=== PATIENT | female | born 1990 | race African-American/Black ===

== ENCOUNTER 2017-03-21 14:32 | Emergency (ER) | payer OTHER ==
[~2017-03-21] VITALS: Ht 152.4 cm; Wt 54.4 kg
[~2017-03-21 14:32] MED LIST: ACCUNEB SO1.25 MG/1; ACCUNEB SO1.25 MG/1 INH; APAP500 PO; ATIVAN0.5 MG PO; ATIVAN1 M1 PO; ATIVAN1 MG PO; BACTRIM DS TAB1 EACH PO; CIPROFLOXACIN500 M1 PO; CITRATE OF MAG296 ML PO; COLACE100 MG PO; DARVOCET-N 1001 EACH PO; DIFLUCAN150 MG PO; FLAGYL500 MG PO; FLEXERIL PO; HYDROCODONE-AP1 EAC6 PO; IBUPROFEN 400400 M2 PO; IBUPROFEN 600600 M1 PO; IBUPROFEN 800800 MG PO; LORTAB 5-325 M1 EACH PO; MIRALAX255 GM PO; MUCUS RELIEF600 MG PO; NEXIUM40 MG PO; NORCO 5-325 TA1 EACH PO; ONDANSETRON HCL4 M2 PO; PENICILLIN VK500 M1 PO; PERCOCET 10-321 EACH PO; PERCOCET 7.5-51 EACH PO; PHENERGAN 25 MG25 M1 PO; PROAIR HFA8.5 GM; PROMETHAZI6.25 MG/2 PO; PROMETHAZINE HC25 MG RECTAL; REGLAN 5 MG TAB5 MG PO; SPACERADULT; TRAMADOL 50 MG50 MG PO; ULTRAM 50MG TAB50 MG PO; ZOFRAN 4 MG ORAL4 M1 DIS; ZOFRAN ODT4 MG PO; ZOFRAN4 MG PO
[2017-03-21 15:27] LABS: ABSOLUTE NEUTROPHILS 5.1 thou/uL (1.4-8.2); BASOPHILS 0.7 % (0.0-2.0); EOSINOPHILS 0.5 % (0.0-3.0); HEMATOCRIT 33.1 % (37.0-47.0); HEMOGLOBIN 10.9 gm/dL (12.0-15.0); LYMPHOCYTES 28.5 % (24.0-44.0); MCH 28.2 pg (26.0-34.0); MCHC 32.8 g/dL (28.0-37.0); MCV 86.1 fL (80.0-100.0); PLATELET COUNT 304 thou/uL (150-400); POLYS 66.3 % (36.0-66.0); RBC 3.85 mil/uL (4.20-5.00); RDW 18.4 % (10.5-14.5); WBC 7.7 thou/uL (4.0-11.0)
[2017-03-21 15:28] LABS: URINE BILIRUBIN NEGATIVE (Negative); URINE BLOOD NEGATIVE (Negative); URINE COLOR YELLOW; URINE GLUCOSE-RANDOM* NEGATIVE (Negative); URINE KETONES NEGATIVE (Negative); URINE LEUKOCYTES-REFLEX NEGATIVE (Negative); URINE PROTEIN (DIPSTICK) TRACE (Negative)
[2017-03-21 15:28] LABS: MANUAL DIFF NO
[2017-03-21 15:31] LABS: CALCIUM 9.1 mg/dL (8.5-10.1); CREATININE 0.8 mg/dL (0.6-1.0); POTASSIUM 3.7 mmol/L (3.5-5.1)
[2017-03-21 15:34] LABS: SSA (PROTEIN CONFIRMATORY) NEGATIVE (Negative)
[2017-03-21 15:36] LABS: TOTAL BILIRUBIN 0.4 mg/dL (<0.1-1.0); TOTAL PROTEIN 7.4 g/dL (6.4-8.2)
[2017-03-21] MEDS ORDERED: FLAGYL500 MG PO (17:03)
[2017-03-21] MEDS ORDERED: BENTYL 20 MG TA20 M1 PO (17:06)
[2017-03-21] MEDS ORDERED: VANDAZOLE GEL 070 GM VG (17:11)
[2017-03-21 17:29] VITALS: BP 112/69
[2017-03-25 03:08] LABS: CHLAMYDIA TRACHOMATIS-PCR Negative (Negative); NEISSERIA GONORRHEA-PCR Negative (Negative)
== END 2017-03-21 17:30 | disposition home or self-care (01) ==
LOC: ER 14:32
PROVIDERS: Physician Assistant
DX: N76.0 Acute vaginitis (principal); B96.89 Other specified bacterial agents as the cause of diseases classified elsewhere; R11.2 Nausea with vomiting, unspecified; R10.30 Lower abdominal pain, unspecified; J45.909 Unspecified asthma, uncomplicated; F17.210 Nicotine dependence, cigarettes, uncomplicated; F10.99 Alcohol use, unspecified with unspecified alcohol-induced disorder; Z90.721 Acquired absence of ovaries, unilateral; Z88.6 Allergy status to analgesic agent

== ENCOUNTER 2017-11-30 02:43 | Emergency (ER) | payer OTHER ==
[~2017-11-30] VITALS: Ht 152.4 cm; Wt 54.4 kg
[~2017-11-30 02:43] MED LIST changes: +BENTYL 20 MG TA20 M1 PO; +VANDAZOLE GEL 070 GM VG
[2017-11-30 03:30] LABS: URINE BILIRUBIN ND (Negative); URINE BLOOD ND (Negative); URINE CLARITY TURBID; URINE COLOR RED; URINE GLUCOSE-RANDOM* ND (Negative); URINE KETONES ND (Negative); URINE LEUKOCYTES-REFLEX ND (Negative); URINE NITRITE-REFLEX ND (Negative); URINE PROTEIN (DIPSTICK) ND (Negative); URINE SPECIFIC GRAVITY ND (1.005-1.035); URINE UROBILINOGEN ND E.U./dl (0.2-1.0)
[2017-11-30 03:36] LABS: URINE RBC >20 Many /HPF (0-2); URINE WBC-REFLEX 6-15 Few /HPF (0-5)
[2017-11-30 03:37] LABS: BACTERIA-REFLEX >30 Many /HPF (None Seen); CASTS None Seen /LPF (None Seen); CRYSTALS None Seen /LPF (None Seen)
[2017-11-30 03:38] LABS: SQUAMOUS >10 Many /LPF (0-3)
[2017-11-30] MEDS ORDERED: KEFLEX500 M1 PO (04:06)
== END 2017-11-30 04:37 | disposition home or self-care (01) ==
LOC: ER 02:43
PROVIDERS: Emergency Medicine
DX: N39.0 Urinary tract infection, site not specified (principal); J45.909 Unspecified asthma, uncomplicated; F17.210 Nicotine dependence, cigarettes, uncomplicated; Z88.8 Allergy status to other drugs, medicaments and biological substances

== ENCOUNTER 2017-12-04 09:29 | Emergency (ER) | payer OTHER ==
[~2017-12-04] VITALS: Ht 154.9 cm; Wt 54.4 kg
[~2017-12-04 09:29] MED LIST changes: +KEFLEX500 M1 PO
[2017-12-04 10:15] LABS: CALCIUM 9.5 mg/dL (8.5-10.1); CREATININE 0.9 mg/dL (0.6-1.0); POTASSIUM 4.1 mmol/L (3.5-5.1)
[2017-12-04 10:18] LABS: HEMATOCRIT 34.2 % (37.0-47.0); HEMOGLOBIN 11.5 gm/dL (12.0-15.0); MCH 29.7 pg (26.0-34.0); MCHC 33.6 g/dL (28.0-37.0); MCV 88.5 fL (80.0-100.0); RBC 3.87 mil/uL (4.20-5.00); RDW 14.5 % (10.5-14.5); WBC 8.9 thou/uL (4.0-11.0)
[2017-12-04 10:55] LABS: AMP/METHAMP Negative (Negative); BARBITURATES Negative (Negative); BENZODIAZEPINES Negative (Negative); COCAINE POSITIVE (Negative); METHADONE Negative (Negative); OPIATES Negative (Negative); PCP Negative (Negative)
[2017-12-04] MEDS ORDERED: NORCO 5-325 TA1 EACH PO (10:56)
[2017-12-04] MEDS ORDERED: AMOXICILLIN875 MG PO (10:56)
== END 2017-12-04 11:32 | disposition home or self-care (01) ==
LOC: ER 09:29
PROVIDERS: Emergency Medicine
DX: S02.5XXA Fracture of tooth (traumatic), initial encounter for closed fracture (principal); J45.909 Unspecified asthma, uncomplicated; F17.210 Nicotine dependence, cigarettes, uncomplicated; Z88.8 Allergy status to other drugs, medicaments and biological substances; Y08.89XA Assault by other specified means, initial encounter; Y93.89 Activity, other specified; Y92.89 Other specified places as the place of occurrence of the external cause; Y99.8 Other external cause status

== ENCOUNTER 2018-02-14 00:38 | Emergency (ER) | payer OTHER ==
[~2018-02-14] VITALS: Ht 152.4 cm; Wt 52.2 kg
[~2018-02-14 00:38] MED LIST changes: +AMOXICILLIN875 MG PO
[2018-02-14 00:53] VITALS: BP 116/82
[2018-02-14 01:35] LABS: URINE BILIRUBIN NEGATIVE (Negative); URINE BLOOD 1+ (Negative); URINE CLARITY CLEAR; URINE COLOR YELLOW; URINE GLUCOSE-RANDOM* NEGATIVE (Negative); URINE KETONES NEGATIVE (Negative); URINE LEUKOCYTES-REFLEX NEGATIVE (Negative); URINE NITRITE-REFLEX NEGATIVE (Negative); URINE PROTEIN (DIPSTICK) 1+ (Negative); URINE UROBILINOGEN 0.2 E.U./dl (0.2-1.0)
[2018-02-14 01:45] LABS: BACTERIA-REFLEX 1-9 Few /HPF (None Seen); CASTS None Seen /LPF (None Seen); CRYSTALS None Seen /LPF (None Seen); MUCUS 4-6 Moderate strn/LPF (None Seen); SQUAMOUS >10 Many /LPF (0-3); URINE RBC None Seen /HPF (0-2); URINE WBC-REFLEX None Seen /HPF (0-5)
[2018-02-14] MEDS ORDERED: NAPROSYN500 MG PO (02:24)
[2018-02-16 14:13] LABS: NEISSERIA GONORRHEA-PCR Negative (Negative)
== END 2018-02-14 02:55 | disposition home or self-care (01) ==
LOC: ER 00:38
PROVIDERS: Emergency Medicine
DX: N94.6 Dysmenorrhea, unspecified (principal); R10.2 Pelvic and perineal pain; J45.909 Unspecified asthma, uncomplicated; Z90.721 Acquired absence of ovaries, unilateral; F17.210 Nicotine dependence, cigarettes, uncomplicated; Z88.8 Allergy status to other drugs, medicaments and biological substances